=== PATIENT | female | born 1950 | race Caucasian/White ===

== ENCOUNTER 2017-09-17 17:53 | Emergency (ER) | payer OTHER ==
[2017-09-17 18:02] VITALS: BP 148/103
--- NOTE | 2017-09-17 18:23 | Emergency Department Report ---
Chief Complaint: Dizziness Stated Complaint: DIZZINESS Time Seen by Provider: 09/17/17 18:17 - HPI History of Present Illness: 67-year-old female history of a blood pressure presents to ED complaining of episode of dizziness that happened last night while she got up to use the bathroom. Patient states she was able to go to sleep and this morning the dizziness started again so she called the [facility] and was told to go to the ED. denies any fall or trauma. Patient is here with her daughter who act as tombstone setter this patient is [place]ian speaking. Patient denies fevers/chills/ nausea/vomiting/abdominal pain/chest pain or shortness of breath. - ROS Review of Systems: As noted in HPI - Exam Vital Signs: Vital Signs 09/17/17 17:59 Temperature 98.5 F Pulse Rate 95 H Respiratory 18 Rate Blood Pressure 148/103 O2 Sat by Pulse 96 Oximetry Physical Exam: GENERAL: Alert and oriented x3, no apparent distress, Normal Gait, atraumatic. EARS: symetrical, atraumatic, non tender, ear canal clear and moderate cerumen, tympanic membrance non inflamed but clear fluid seen behind TM bilaterally. gross auditory nml bilaterally. MOUTH:Mouth is well hydrated and without lesions. Tonsils nonerythematous or swollen, Uvula midline, Tongue not elevated. Mucous membranes are moist. Posterior pharynx clear, no exudate or lesions. Patent airways. LUNGS: Symetrical with respiration, No wheezing, no rales or crackles, CTAB. HEART: S1, S2 present, regular rate and rhythm without murmur, no rubs, no gallops. Non tender to palpation SKIN: Warm and dry, No lesions, No ulceration or induration present. MSE screening note: Focused history and physical exam performed. Due to findings the following was ordered: ED Medical Decision Making - Medical Decision Making Labs ordered. Medical decision ordered. 67-year-old female in stable conditions. ED Disposition for MSE Condition: Stable
[2017-09-17] MEDS ORDERED: ANTIVERT PO ONE (18:32)
[2017-09-17 19:06] LABS: Bilirubin,Urine NEG (Negative); Blood,Urine NEG (Negative); Ketones,Urine NEG (Negative); Leukocyte Esterase,Urine TR (Negative); Nitrite,Urine NEG (Negative); Protein,Urine <15 mg/dL mg/dL (Negative); Urobilinogen,Urine < 2.0 mg/dL (<2.0)
[2017-09-17 19:17] LABS: Basophils % (Auto) 0.5 % (0.0-1.8); Eosinophils % (Auto) 2.6 % (0.0-4.3); Hematocrit 41.7 % (30.3-42.9); Hemoglobin 13.6 gm/dl (10.1-14.3); Mean Corpuscular HGB Conc 33 % (30-34); Mean Corpuscular Hemoglobin 29 pg (28-32); Mean Corpuscular Volume 88 fl (79-97); Platelet Count 150 K/mm3 (140-440); Red Blood Count 4.75 M/mm3 (3.65-5.03); Red Cell Distribution Width 13.9 % (13.2-15.2); White Blood Count 6.6 K/mm3 (4.5-11.0)
[2017-09-17 19:22] LABS: Alanine Aminotransferase 17 units/L (7-56); Albumin 4.4 g/dL (3.9-5); Albumin/Globulin Ratio 1.4 %; Alkaline Phosphatase 92 units/L (35-129); BUN/Creatinine Ratio 15; Blood Urea Nitrogen 12 mg/dL (7-17); Calcium 9.3 mg/dL (8.4-10.2); Carbon Dioxide 26 mmol/L (22-30); Glucose 83 mg/dL (65-100); Total Protein 7.5 g/dL (6.3-8.2)
[2017-09-17 19:23] LABS: Anion Gap 21 mmol/L; Chloride 101.7 mmol/L (98-107); Potassium 4.3 mmol/L (3.6-5.0); Sodium 144 mmol/L (137-145)
== END 2017-09-17 22:50 | disposition left against medical advice (07) ==
LOC: ED 17:53
DX: R42 Dizziness and giddiness (principal); Z53.21 Procedure and treatment not carried out due to patient leaving prior to being seen by health care provider
CPT/HCPCS: 36415; 80053; 81001; 85025; 93005; 93010